=== PATIENT | male | born 1995 | race American Indian/Alaskan Native ===

== ENCOUNTER 2019-01-10 17:45 | Emergency (ER) | payer OTHER ==
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
[2019-01-10] MEDS ORDERED: FLEXERIL PO ONE (18:56)
[2019-01-10] MEDS ORDERED: NORCO 5/325 PO ONE (18:56)
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
[2019-01-10 22:44] VITALS: BP 126/80
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
== END 2019-01-10 22:44 | disposition home or self-care (01) ==
LOC: ED 17:45
DX: S16.1XXA Strain of muscle, fascia and tendon at neck level, initial encounter (principal); M54.5 Low back pain; M54.6 Pain in thoracic spine; S50.12XA Contusion of left forearm, initial encounter; J45.909 Unspecified asthma, uncomplicated; F17.200 Nicotine dependence, unspecified, uncomplicated; Z88.6 Allergy status to analgesic agent; V49.49XA Driver injured in collision with other motor vehicles in traffic accident, initial encounter; Y93.89 Activity, other specified; Y92.488 Other paved roadways as the place of occurrence of the external cause; Y99.8 Other external cause status
CPT/HCPCS: 72040; 72072; 72100